=== PATIENT | male | born 1955 | race Caucasian/White ===

== ENCOUNTER 2018-08-26 16:01 | Emergency (ER) | payer MEDICARE, BC ==
--- NOTE | 2018-08-26 16:41 | ED Physician Chart ---
ED Chief Complaint/HPI - Patient Information Date Seen:: 08/26/18 Time Seen:: 16:30 Chief Complaint:: choking episode History of Present Illness:: Patient choked on a marshmallow at noon today. The episode was not witnessed by the career services manager who brought the patient to the emergency room today so it is uncertain how long the choking episode lasted. He reportedly had difficulty speaking or was unable to speak at all for an unspecified length of time after the choking episode. 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) Review:: Nurse's Note Reviewed ED Review of Systems - Review of Systems General/Constitutional: No fever, No chills, No weight loss, No weakness, No diaphoresis, No edema, No loss of appetite Skin: No skin lesions, No rash, No bruising Head: No headache, No light-headedness Eyes: No loss of vision, No pain, No diplopia ENT: No earache, No nasal drainage, No sore throat, No tinnitus Neck: No neck pain, No swelling, No thyromegaly, No stiffness, No mass noted Cardio Vascular: No chest pain, No palpitations, No PND, No orthopnea, No edema Pulmonary: No SOB, No cough, No sputum, No wheezing, Other (looking episode) GI: No nausea, No vomiting, No diarrhea, No pain, No melena, No hematochezia, No constipation, No hematemesis G/U: No dysuria, No frequency, No hematuria Musculoskeletal: No bone or joint pain, No back pain, No muscle pain Endocrine: No polyuria, No polydipsia Psychiatric: No prior psych history, No depression, No anxiety, No suicidal ideation Hematopoietic: No bruising, No lymphadenopathy Allergic/Immuno: No urticaria, No angioedema Neurological: No syncope, No focal symptoms, No weakness, No paresthesia, No headache, No seizure, No dizziness, No confusion, No vertigo ED Past Medical History - Past Medical History Past Medical History: Seizures, Other (mental retardation depression;) Family History: None Social History: Non Smoker, No Alcohol Surgical History: other (stones) Psychiatricy History: Depression Medication: Reviewed Family Medical History - Family Member Mother History Unknown: Yes ED Physical Exam - Physical Examination General/Constitutional: Awake, Well-developed, well-nourished, Alert, No distress, GCS 15, Non-toxic appearing, Ambulatory Other Gen/Cons comments:: Tenorio has easy unlabored respirations; speaks normally Head: Atraumatic Eyes: Lids, conjuctiva normal, PERRL Skin: Nl inspection, No rash, No skin lesions, No ecchymosis ENMT: External ears, nose nl, TM canals nl, Nasal exam nl, Lips, teeth, gums nl Neck: No nuchal rigidity Respiratory: Nl effort/Exclusion, Clear to Auscultation, No Wheeze/Rhonchi/Rales Cardio Vascular: RRR, No murmur, gallop, rubs, NL S1 S2 GI: No tenderness/rebounding/guarding : No CVA tenderness Extremities: Normal digits & nails Neuro/Psych: No focal deficits Misc: Normal back ED Labs/Radiology/EKG Results - Radiology Results Results: Chest x-ray normal ED Assessment - Assessment General Assessment: 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 As of 1645 patient has no shortness of breath. ED Septic Shock - . Is Septic Shock (SBP<90, OR Lactate>4 mmol\L) present?: No - <6hrs of presentation: Vital Signs: Vital Signs - 8 hr 08/26/18 16:07 Temp 97.4 F HR 67 RR 18 BP 132/81 O2 Sat % 99 ED Reassessment (Disposition) - Reassessment Reassessment Condition:: Unchanged - Diagnosis Diagnosis:: Choking episode - Aftercare/Follow up Instructions Aftercare/Follow-Up Instructions:: Refer to Discharge Instructions - Patient Disposition Discharge/Transfer:: Residential/Boarding Care Condition at Disposition:: Stable, Unchanged
--- NOTE | 2018-08-27 07:59 | Diagnostic Imaging Report ---
Portable chest x-ray Time: 1646 History: Choking episode Allowing for portable technique the heart is enlarged. No focal pulmonary parenchymal processes. No hilar or mediastinal abnormalities. Impression: No acute abnormalities.
== END 2018-08-26 17:00 | disposition home or self-care (01) ==
LOC: ER 16:01
DX: R09.89 Other specified symptoms and signs involving the circulatory and respiratory systems (principal); F32.9 Major depressive disorder, single episode, unspecified
CPT/HCPCS: 71045-TC; Z7502